=== PATIENT | male | born 2000 | race Two or more races ===

== ENCOUNTER 2019-06-10 18:52 | Emergency (ER) | payer SELFPAY ==
[~2019-06-10] VITALS: Ht 172.7 cm; Wt 81.6 kg
[2019-06-11 01:53] VITALS: BP 125/85
== END 2019-06-11 02:39 | disposition home or self-care (01) ==
LOC: ER 18:54
DX: S96.911A Strain of unspecified muscle and tendon at ankle and foot level, right foot, initial encounter (principal); W19.XXXA Unspecified fall, initial encounter; Y93.89 Activity, other specified; Y99.8 Other external cause status; Y92.89 Other specified places as the place of occurrence of the external cause
CPT/HCPCS: 93971